=== PATIENT | female | born 1980 | race Caucasian/White ===

== ENCOUNTER 2017-02-02 12:14 | Emergency (ER) | payer MEDICAID ==
[~2017-02-02] VITALS: Ht 160 cm; Wt 67.6 kg
[~2017-02-02 12:14] MED LIST: ATIVAN1 MG PO
[2017-02-02 12:40] VITALS: BP 150/92
--- NOTE | 2017-02-02 15:50 | NUR ---
PATIENT TO BED 5 AT THIS TIME.
--- NOTE | 2017-02-02 15:52 | NUR ---
37F BIB FAMILY C/O ANXIETY X 3 DAYS; PT HAS HX OF DEPRESSION; TAKING LEXAPRO/SEROQUEL; PT C/O THROBBING POSTERIOR HEADACHE, RADIATES TO TOP OF HEAD, 8/10 X 3 DAYS; DENIES PAIN OR INJURY TO HEAD; DENIES BLURRY VISION, OR VISION CHANGES AT THIS TIME; PT A&OX4, PERRL, BL LUNG SOUNDS CLEAR, RR EVEN/UNLABORED; PT C/O 1 EPISODE OF VOMITING X TODAY, BUT DENIES DIARRHEA AT THIS TIME; ABDOMEN SOFT, NON-TENDER, ACTIVE BOWEL SOUNDS X 4 QUADRANTS; STEADY GAIT; PT RESTING IN BED W/ HOB ELEVATED AND IN LOWEST POSITION; POSITIONED FOR COMFORT; FAMILY AT BEDSIDE; ER MD MADE AWARE OF STATUS. WILL CONTINUE TO MONITOR.
--- NOTE | 2017-02-02 16:07 | NUR ---
ER MD DR. PENA EVALUATING PT AT BEDSIDE.
[2017-02-02] MEDS ORDERED: LORazepam 1 MG TAB PO ONE (16:15)
--- NOTE | 2017-02-02 17:10 | NUR ---
Patient appears to be SLEEPING comfortably in bed. Vital Signs within normal limits. Respirations even and unlabored. FAMILY AT BEDSIDE; WILL CONTINUE TO MONITOR.
--- NOTE | 2017-02-02 18:03 | NUR ---
RESTING WITH OU CLOSED, NO S/S RESP DISTRESS---EASY TO AWAKEN--DENIES ANXIETY OR OVERWHELMING DEPRESSION---DC HOME INSTRUCTIONS GIVEN TO PT AND SPOUSE AT BEDSIDE
[2017-02-02 18:04] VITALS: BP 131/79
== END 2017-02-02 18:04 | disposition home or self-care (01) ==
LOC: MED 12:14
DX: F41.9 Anxiety disorder, unspecified (principal)